=== PATIENT | male | born 1970 | race American Indian/Alaskan Native ===

== ENCOUNTER 2017-06-10 11:14 | Emergency (ER) | payer SELFPAY ==
[2017-06-10 11:21] VITALS: BMI 22.8
--- NOTE | 2017-06-10 12:41 | C.PDOC ---
History Of Present Illness 47yo male, with history of seizures presents to ED today stating he had a seizure at 8:30 AM today. It was unwitnessed. States that he was on a chair and did not fall tot he ground. States he took a shower afterwards and then called the ambulance. Denies biting his tongue, incontinence, hitting his head, or any bodily changes. Patient also notes he had a seizure 4 days ago. Patient states he feels his medication levels "are too low" but notes that he is complaint with his medication. He is currently taking Keppra and Dilantin prescribed by Dr Fay, no recent changes. He denies any vision changes, head injury, weakness , numbness, bowel or bladder incontinence. Pt notes he hasnt seen a neurologist but has an appointment with Dr Rodriguez on 06/18/17. PCP: Dr. Fay Time Seen by Provider: 06/10/17 12:20 Chief Complaint (Nursing): Seizure History Per: Patient History/Exam Limitations: no limitations Recent Seizure Activity Began: Hours Ago: (3) Number Of Seizures: Multiple Past Medical History Reviewed: Historical Data, Nursing Documentation, Vital Signs Vital Signs: Last Vital Signs Temp 97.8 F 06/10/17 16:37 Pulse 62 06/10/17 16:37 Resp 18 06/10/17 16:37 BP 108/70 06/10/17 16:37 Pulse Ox 98 06/10/17 16:37 - Medical History PMH: Seizures Surgical History: No Surg Hx - [facility] Procedures CLOSURE SKIN & SUBCUTANEOUS NEC (07/26/13) TETANUS TOXOID ADMINIST (07/26/13) Family History: States: Unknown Family Hx - Social History Hx Tobacco Use: Yes Hx Alcohol Use: Yes Hx Substance Use: No - Immunization History Hx Tetanus Toxoid Vaccination: Yes Hx Influenza Vaccination: No Hx Pneumococcal Vaccination: No Review Of Systems Except As Marked, All Systems Reviewed And Found Negative. Constitutional: Negative for: Fever, Chills Eyes: Negative for: Vision Change Gastrointestinal: Negative for: Vomiting Genitourinary: Negative for: Incontinence Neurological: Positive for: Seizures. Negative for: Weakness, Numbness Physical Exam - Physical Exam Appears: Non-toxic, No Acute Distress (pt is smiling and laughing on the phone) Skin: Normal Color, Warm, Dry Head: Normacephalic, No Swelling, Other (ecchymosis noted to right upper eyebrow ) Eye(s): bilateral: Normal Inspection, PERRL, EOMI Ear(s): Bilateral: Normal Nose: Normal Oral Mucosa: Moist Neck: Normal ROM, Supple Chest: Symmetrical Cardiovascular: Rhythm Regular Respiratory: Normal Breath Sounds, No Wheezing Gastrointestinal/Abdominal: Normal Exam, Soft, No Tenderness Back: Normal Inspection Extremity: Normal ROM, No Deformity, No Swelling Neurological/Psych: Oriented x3, Normal Speech, Normal Cognition, Normal Cranial Nerves, Normal Motor, Normal Sensation Gait: Steady ED Course And Treatment - Laboratory Results Result Diagrams: 06/10/17 12:38 06/10/17 12:38 O2 Sat by Pulse Oximetry: 100 (RA) Pulse Ox Interpretation: Normal Progress Note: Labs including Dilantin levels ordered. Discussed with pt the results and instructed strict follow up. Pt verbalized understanding. Case discussed with Dr Ramirez, agreed upon plan and discharge. - Physician Consult Information Time Consulting Physician Contacted: 14:33 Physician Contacted: Dr. Rodriguez Outcome Of Conversation: Case discussed with Dr. Rodriguez who is requested a MRI with and without contrast. Also states the patient should stop taking Dilantin and be put on Depakote 500mg BID. Disposition - Disposition Referrals: Lorenzo Rodriguez MD [Staff Provider] - Disposition: HOME/ ROUTINE Disposition Time: 16:06 Condition: STABLE Additional Instructions: Stop your Dilantin. Start your Depakote. Follow up with Dr Rodriguez in 2-3 days. Return to ER if symptoms persist or worsen. Prescriptions: Divalproex [Depakote DR(*BID*)] 500 mg PO BID #[id number] ect Instructions: Seizures, Adult (DC) Forms: [facility] ([place]kin[place]) - Clinical Impression Clinical Impression: Seizure - PA / AUDIT PRACTICE INTERN / Resident Statement MD/DO has reviewed & agrees with the documentation as recorded. - Scribe Statement The provider has reviewed the documentation as recorded by the Scribe (Radha Cuevas) Provider Attestation: All medical record entries made by the Scribe were at my direction and personally dictated by me. I have reviewed the chart and agree that the record accurately reflects my personal performance of the history, physical exam, medical decision making, and the department course for this patient. I have also personally directed, reviewed, and agree with the discharge instructions and disposition.
[2017-06-10 12:48] LABS: BASO % 0.5 % (0.0-2.0); EOS # 0.2 K/uL (0.0-0.7); EOS % 4.6 % (0.0-4.0); HEMOGLOBIN 12.8 g/dL (12.0-18.0); LYMPH # 1.3 K/uL (1.0-4.3); LYMPH % 24.8 % (20.0-40.0); MEAN CELL VOLUME 93.6 fL (80.0-94.0); MEAN CORPUSCULAR HEMOGLOBIN 31.5 pg (27.0-31.0); MEAN CORPUSCULAR HGB CONC 33.6 g/dL (33.0-37.0); MEAN PLATELET VOLUME 9.5 fL (7.2-11.7); MONO # 0.4 K/uL (0.0-0.8); MONO % 8.1 % (0.0-10.0); NEUT # 3.3 K/uL (1.8-7.0); RBC 4.07 Mil/uL (4.40-5.90); RED CELL DISTRIBUTION WIDTH 13.7 % (11.5-14.5); WHITE BLOOD COUNT 5.3 K/uL (4.8-10.8)
[2017-06-10 13:08] LABS: ALB/GLOB RATIO 1.1 (1.0-2.1); ALBUMIN 4.4 g/dL (3.5-5.0); ALT/SGPT 19 U/L (21-72); AST/SGOT 28 U/L (17-59); BLOOD UREA NITROGEN 7 mg/dL (9-20); CALCIUM 9.2 mg/dl (8.6-10.4); GFR AFRICAN-AMERICAN > 60; GFR NON-AFRICAN AMERICAN > 60
[2017-06-10 14:17] LABS: BARBITURATES, UR NEGATIVE (NEGATIVE); BENZODIAZEPINES, UR NEGATIVE (NEGATIVE); OPIATES, UR NEGATIVE (NEGATIVE); PHENCYCLIDINE, UR NEGATIVE (NEGATIVE)
[2017-06-10 14:53] LABS: SQUAMOUS EPITHIAL < 1 /hpf (0-5); URINE BILIRUBIN NEGATIVE (NEGATIVE); URINE BLOOD 2+ (NEGATIVE); URINE CLARITY Clear (Clear); URINE COLOR Yellow (YELLOW); URINE GLUCOSE (UA) NORMAL (Normal); URINE LEUKOCYTE ESTERASE NEG Leu/uL (Negative); URINE PROTEIN NEGATIVE (NEGATIVE); URINE UROBILINOGEN NORMAL mg/dL (0.2-1.0)
[2017-06-10] MEDS ORDERED: Gadodiamide 287 MG/ML VIAL (15ML) IV ONE (15:45)
[2017-06-10] MEDS ORDERED: Divalproex 500 mg DR Tab PO STA (16:11)
[2017-06-10] MEDS ORDERED: Divalproex 500 mg DR Tab PO ONE (16:17)
[2017-06-10 16:39] VITALS: BP 108/70; PULSE 62; RESP 18; TEMP 97.8
--- NOTE | 2017-06-11 10:13 | MRI ---
PROCEDURE: MRI BRAIN WITH AND WITHOUT CONTRAST HISTORY: Seizures COMPARISON: Noncontrast head CT from 08/19/2011. TECHNIQUE: Multiplanar, multisequence MR images of the brain were obtained with and without intravenous contrast enhancement. 13 mL Omniscan was injected intravenously. FINDINGS: HEMORRHAGE: None DWI: No evidence of an acute or early subacute infarction. BRAIN PARENCHYMA: Nath-white matter differentiation is preserved. There is no mass, mass effect or abnormal extra-axial fluid collection. There is no territorial infarction. The midline sagittal structures are normal. The hippocampi by are symmetric and have normal signal intensity. There is no evidence for mesial temporal sclerosis. ENHANCEMENT: No abnormal intracranial enhancement. VENTRICLES: There is moderate age advanced global parenchymal volume loss and proportionate enlargement of the ventricles and cortical sulci. . CRANIUM: There is normal bone marrow signal pattern. ORBITS: Grossly unremarkable. PARANASAL SINUSES/MASTOIDS: Predominantly clear. VASCULAR SYSTEM: There are normal signal voids in the larger intracranial arteries. OTHER FINDINGS: None . IMPRESSION: No acute intracranial abnormality. Moderate global parenchymal volume loss, advanced for the patient's age.
[2017-06-11 18:39] VITALS: O2SAT 100
== END 2017-06-10 16:45 | disposition home or self-care (01) ==
LOC: C.ER 11:14
DX: G40.909 Epilepsy, unspecified, not intractable, without status epilepticus (principal)
CPT/HCPCS: 70553; 80053; 80185; 81001; 82550; 82948; 85025; 99285; A9579; G0480